=== PATIENT | female | born 1990 | race Hispanic/Latino ===

== ENCOUNTER 2018-10-06 13:08 | Outpatient (RCR) | payer SELFPAY | END 2018-10-06 23:59 | disposition home or self-care (01) | LOC: DC 13:08 | PROVIDERS: Visit Provider Obstetrics & Gynecology | DX: O24.410 Gestational diabetes mellitus in pregnancy, diet controlled (principal) | CPT/HCPCS: G0108 ==

== ENCOUNTER 2018-12-09 17:35 | Outpatient (CLI) | payer SELFPAY ==
[2018-12-09 18:31] LABS: Bedside Glucose 110 mg/dL (70-110)
[2018-12-09 19:32] VITALS: BMI 37.3
--- NOTE | 2018-12-15 09:20 | OB.TRI.NOTE ---
- Problem List (1) Non-reactive NST (non-stress test) Status: Acute (2) Gestational diabetes Status: Acute History of Present Illness Date of Service: 12/09/18 Was patient seen by the physician?: No Reason For Visit: Extended monitoring Date of Service: 12/09/18 Final BRADEN: 12/16/18 Gestational age: 39 Weeks and 6 Days History of Present Illness: Patient presented to the office for a routine appointment and had a nonreactive NST with an isolated deceleration for GDM. She was sent to L&D for a BG check and extended monitoring Allergies No Known Allergies Allergy (Verified 12/09/18 19:11) Laboratory Studies: Laboratory Tests 12/09/18 Range/Units 18:27 POC Glucose 110 (70-110) mg/dL NST - FHR Rate Baby A Baseline: 130 Variability:: Moderate Accelerations:: 15 x 15 Decelerations:: None NST Reactive:: Yes FHR Category:: Category I Uterine Activity:: Irritable Impression/Plan Prolonged monitoring reactive and category 1 D/c home to follow up in the office and schedule IOL for GDM
== END 2018-12-09 19:35 | disposition home or self-care (01) ==
LOC: WPOUT 17:40 → WP 17:40
PROVIDERS: Referring Provider Obstetrics & Gynecology; Visit Provider Obstetrics & Gynecology
DX: O24.419 Gestational diabetes mellitus in pregnancy, unspecified control (principal); Z3A.39 39 weeks gestation of pregnancy
CPT/HCPCS: 59050; 82962; 94760; 99218; G0378

== ENCOUNTER 2018-12-16 07:40 | Inpatient (IN) | payer SELFPAY ==
[2018-12-16] MEDS: Lactated Ringers 1,000 ML 50 ML IV ×3 (08:10→13:15)
[2018-12-16 08:33] VITALS: BMI 35.5
[2018-12-16 08:40] LABS: Absolute Lymphocyte Count 1.78 X10^3/ul (0.83-4.51); Absolute Neutrophil Count 4.5 X10^3/uL (2.0-7.7); Basophil# 0.01 X10^3/uL; Basophil% 0.1 % (0-1); Eosinophil# 0.11 X10^3/uL; Eosinophils% 1.6 % (0-5); Hemoglobin 13.3 g/dl (12.0-15.0); Lymphocyte # 1.78 X10^3/ul (4.0); Lymphocyte % 25.4 % (19-41); Mean Corp Hgb Conc 34.1 g/gl (32-36); Mean Corpuscular Hgb 29.6 pg (27.0-32.0); Mean Corpuscular Volume 86.7 fL (81-99); Mean Platelet Vol. 12.3 fl (6.2-12.0); Monocyte# 0.53 X10^3/uL; Monocyte% 7.6 % (0-10); Neutrophil # 4.53 X10^3/uL (2.7-7.7); Neutrophil % 64.7 % (47-70); Platelet Count 188 K/mm3 (150-450); RBC Distribution Width CV 13.2 % (11.6-14.6); RBC Distribution Width SD 40.7 fl (35.1-43.9)
[2018-12-16 08:44] LABS: POSITIVE COUNT NO; POSITIVE DIFFERENTIAL NO; POSITIVE MORPHOLOGY NO
[2018-12-16] MEDS: Oxytocin 30 units/NS 500 ml 30 UNITS/500 ML IV.SOLN IV (09:10)
[2018-12-16 10:01] LABS: Bedside Glucose 96 mg/dL (70-110)
[2018-12-16 10:35] LABS: Bedside Glucose 71 mg/dL (70-110)
--- NOTE | 2018-12-16 12:27 | HP.PCM_ITS ---
- Problem List (1) History of section Status: Acute (2) Hx successful (vaginal after ), currently Status: Acute (3) Gestational diabetes Status: Acute History Date of Admission: 12/16/18 Final BRADEN: 12/17/18 Gestational age: 39 Weeks and 6 Days History of this : This is a 28 year-old, G3, P2002, at 39 weeks gestational age who presents for scheduled IOL for GDM. Allergies No Known Allergies Allergy (Verified 12/16/18 08:34) Home Medications: Home Medications Vits [Prenatabs FA] 1 tab PO DAILY 12/09/18 Smoking Status: Never smoker Alcohol: None Number of Fetus(es): 1 Heart Tracin/mod sharon/+accels/no decels History Past Pregnancies: Past Pregnancies Delivery Date Name GA/Weeks Outcome Route Weight Infant Gender Labor Length Anesthesia Delivery Location Provider FOB 40w4d C/S 6lb 9oz [place] 39w0d 7lb [place] Labs: GBS neg 36 wk US: AGA and normal fluid Hgb 13.3, plt 236UDS neg Syphilis NR RI HepB neg HIV NR Rh positive, antibody screen neg GC/CT neg Expected Delivery Method: Review of Systems Unable to obtain accurate/complete ROS d/t: 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 and pt is Cambodian speaking Physical Exam General: Alert, No apparent distress HEENT: Atraumatic Lungs: Normal air movement Abdomen: Gravid Extremities:: No edema Neurological: Neuro grossly intact LINEN ATTENDANT: Normal external genitalia Estimated gestational size: Appropriate for gestational size Presentation: Cephalic Cervix Dilation (cm): 4 Station: -2 Effacement (%): 60 Assessment/Plan All Active Problems Non-reactive NST (non-stress test) (Acute) Gestational diabetes (Acute) History of section (Acute) Hx successful (vaginal after ), currently (Acute) This is a 28 year-old, G3, P2002, at 39 weeks gestational age who presents for scheduled IOL for GDM. H/o prior C/S followed by successful . In the office, risks and benefits of scheduled C/S vs TOLAC were discussed and patient desires TOLAC. - Routine intrapartum care - GBS neg - Epidural prn - Vicente out and pt now 4 cm. AROM performed for clear fluid. IUPC and FSE placed - Continue titration of pit - Anticipate successful - Management per sales service professional provider Dr. Benoit
[2018-12-16 14:26] LABS: Bedside Glucose 87 mg/dL (70-110)
[2018-12-16] MEDS: Oxytocin 30 units/NS 500 ml 30 UNITS/500 ML IV.SOLN 334 UNITS IV (16:03)
--- NOTE | 2018-12-16 16:16 | PCM.OPRPT ---
Report of Operation Date of Procedure: 12/16/18 Vaginal Delivery Maternal Presentation: Medically Indicated Induction Method of Induction: Pitocin, Vicente Bulb, Amniotomy Medical Reason for Induction: - - gestational diabetes class A1 Amniotic Membrane Rupture Type: Artificial Amniotic Fluid Description: Clear Final BRADEN: 12/17/18 Gestational age: 39 Weeks and 6 Days Date of Procedure: 12/16/18 Pre-Operative Diagnosis: labor Post-Operative Diagnosis: same Surgery/ Procedure Performed: Spontaneous Vaginal Delivery Type of Anesthesia: None Description of Procedure: A vigorous female was delivered DELMA over intact perineum. A loose nuchal cord ?1 was easily reduced. The remainder the infant was delivered with maternal pushing and gentle traction only in less than 15 seconds. The Pitocin infusion was initiated for active management of the third stage. The cord was clamped and cut after 1 minute. The was attended to by the waiting nursing staff. The placenta was delivered spontaneously and intact. The cervix and vagina were intact. Sponge and needle counts were correct. A vaginal sweep was completed by me. Presentation: DELMA Placental Delivery Description: Spontaneous Placenta Disposition: [facility] Cord Vessel Description: 3 Vessels Nuchal Cord Compression: Without compression Cord Entanglement: Around neck x 1, loose Estimated Blood Loss: 300 Infant A gender: Female Episiotomy Description: None Laceration: None Medications given after delivery: IV Pitocin Complications: None
[2018-12-16] MEDS: Oxytocin 30 units/NS 500 ml 30 UNITS/500 ML IV.SOLN 167 UNITS IV (16:33)
--- NOTE | 2018-12-16 17:20 | NURSING ---
at present pt's BGT 165. Pt has had a sprite to drink and renny doones since delivery at 1601
[2018-12-16 17:26] LABS: Bedside Glucose 88 mg/dL (70-110)
[2018-12-16 17:41] LABS: Bedside Glucose 165 mg/dL (70-110)
[2018-12-16] MEDS: Acetaminophen 500 MG Tablet 1000 MG PO (18:28)
[2018-12-16 20:00] VITALS: BP 106/54; PULSE 83; RESP 18; TEMP 36.3
[2018-12-17] VITALS: BP 98/48; PULSE 83; RESP 16; TEMP 37.3
[2018-12-17 03:40] VITALS: BP 104/62; PULSE 79; RESP 18; TEMP 36.6
[2018-12-17] MEDS: Acetaminophen 500 MG Tablet 1000 MG PO (08:34)
[2018-12-17 10:16] VITALS: BP 112/61; PULSE 64; RESP 18; TEMP 36.4
[2018-12-17 12:30] VITALS: BP 93/55; PULSE 57; RESP 16; TEMP 36.2
--- NOTE | 2018-12-17 13:06 | DCINST_ITS ---
Discharge Diet: No Restrictions Discharge Activity: Return to Normal Activity, May not drive while taking narcotic pain medications., May Shower May resume sexual activity in: 4-6 weeks Additional Activity Instructions:: Nothing in the vagina for 4-6 weeks. You may return to work/school in 6 weeks. Call your doctor if your incision/area has: Continuous Slow Oozing, Sudden Increased Bleeding, Increased Pain/ Swelling, Increased Redness, Foul Smelling Discharge Additional Instructions: If you experience any of the following, contact your healthcare provider. * Bleeding that soaks a pad every hour for 2 hours * Fever 100.4 or higher * Unrelieved incision or abdominal pain * Swelling, redness, discharge or bleeding from your incision or episiotomy site * Your incision begins to separate * Problems urinating (including inability to urinate or burning while urinating). * Visual changes * Severe headache * Flu-like symptoms * Pain or redness in one of both of your breasts * Pain, warmth, tenderness or swelling in your legs, especially the calf area * Frequent nausea and vomiting * Symptoms of depression or anxiety If you experience any of the following, call 911 or go to the nearest Emergency Room. * Chest pain * Problems breathing * Seizure activity * Partial or complete paralysis of a body part, slurred speech, weakness or drooping of the face, or a sudden inability to walk or hold your balance Allergies/Adverse Reactions: Allergies No Known Allergies Allergy (Verified 12/16/18 08:34) Medications to take at Discharge Vits [Prenatabs FA ] 1 tab PO DAILY 12/09/18 Ibuprofen [Motrin] 600 mg PO Q6H PRN #60 tab 12/17/18 The following prescriptions were given: Ibuprofen [Motrin] 600 mg PO Q6H PRN #60 tab PRN Reason: Pain Prescription Printed Please Follow Up With: Charissa Benoit MD - [phone] When: Call to make an appointment with your providers office in 1-2 in 6 weeks. Primary Care Physician: Care Physician,No Primary [Primary Care Provider] - Test Results: Test results from this visit will be discussed in further detail at your follow- up appointment, if applicable.
--- NOTE | 2018-12-17 13:07 | PCM.PN.OB ---
Patient Problems: Active and Suspected Problems History of section (Acute) Hx successful (vaginal after ), currently (Acute) Subjective: Pain well controlled. Average lochia. Has been up to urinate. Tolerating regular diet. - Physical Exam General: Alert, Cooperative, No apparent distress Vital Signs Temp Pulse Resp BP 97.6 F L 64 18 112/61 12/17/18 10:16 12/17/18 10:16 12/17/18 10:16 12/17/18 10:16 Oxygen Delivery Method Room Air Weight: 85.275 kg Body Mass Index (BMI) 35.5 Intake and Output for Last 24 Hours 12/15/18 12/16/18 12/17/18 23:59 23:59 23:59 Intake Total 2041 / 2041 Output Total 1924 / 1924 Balance 117 / 117 POC Glucose 12/16/18 12/16/18 12/16/18 17:26 15:18 14:10 POC Glucose 165 H 88 87 Medical Necessity - Tobacco Use Smoking Status: Never smoker Assessment/Plan All Active Problems Non-reactive NST (non-stress test) (Acute) Gestational diabetes (Acute) History of section (Acute) Hx successful (vaginal after ), currently (Acute) day #1 status post vaginal delivery. Patient desires discharge home today. Routine discharge instructions and prescriptions were given. Follow-up in the office in 1-2 in 6 weeks or as needed.
[2018-12-17 18:00] VITALS: BP 109/71; PULSE 80; RESP 16; TEMP 36.2
--- NOTE | 2018-12-17 19:27 | NURSING ---
Discharge teaching completed using nanotechnology engineering technologist ipad. Part of teaching done with Duran [id number], and then Sarkis [id number]. Discussed education, d/c instructions, and certificate info as well as procedures.
--- NOTE | 2018-12-17 20:27 | NURSING ---
2024 Family of pt leaving for the night at this time. Explained to pt how to reach RN with phone. Reassured pt and family communication ipad will be used to help with communication. Pt friend would like senior game designer to call in AM about POC, to know when she should arrive tomorrow.
[2018-12-17 21:00] VITALS: BP 113/73; PULSE 82; RESP 20; TEMP 36.2
[2018-12-18 02:00] VITALS: BP 110/69; PULSE 63; RESP 16; TEMP 36
[2018-12-18 09:15] VITALS: BP 111/65; PULSE 68; RESP 16; TEMP 36.3
--- NOTE | 2018-12-18 09:41 | PCM.PN.OB ---
Patient Problems: Active and Suspected Problems History of section (Acute) Hx successful (vaginal after ), currently (Acute) Subjective: Pain well controlled, average lochia. Desires discharge. - Physical Exam General: Alert, Cooperative, No apparent distress Vital Signs Temp Pulse Resp BP 97.4 F L 68 16 111/65 12/18/18 09:15 12/18/18 09:15 12/18/18 09:15 12/18/18 09:15 Oxygen Delivery Method Room Air Weight: 85.275 kg Body Mass Index (BMI) 35.5 Intake and Output for Last 24 Hours 12/16/18 12/17/18 12/18/18 23:59 23:59 23:59 Intake Total 2041 / 2041 Output Total 1924 / 1924 Balance 117 / 117 Medical Necessity - Tobacco Use Smoking Status: Never smoker Assessment/Plan All Active Problems Non-reactive NST (non-stress test) (Acute) Gestational diabetes (Acute) History of section (Acute) Hx successful (vaginal after ), currently (Acute) day #2 status post vaginal delivery, history of previous section. Infant is breast-feeding doing well. Discharge home with routine follow-up and instructions.
== END 2018-12-18 10:25 | disposition home or self-care (01) | DRG 807 ==
PROVIDERS: Admitting Provider Obstetrics & Gynecology; Referring Provider Obstetrics & Gynecology; Visit Provider Obstetrics & Gynecology
DX: O24.420 Gestational diabetes mellitus in childbirth, diet controlled (principal); Z37.0 Single live birth; O69.81X0 Labor and delivery complicated by cord around neck, without compression, not applicable or unspecified; Z3A.39 39 weeks gestation of pregnancy
CPT/HCPCS: 59025; 59050; 82962; 85025; 86850; 86900; 99218; J7120; G0378

== ENCOUNTER 2021-06-19 14:13 | Outpatient (CLI) | payer SELFPAY ==
[2021-06-19 14:33] LABS: Absolute Lymphocyte Count 1.95 X10^3/uL (0.83-4.51); Absolute Neutrophil Count 5.7 X10^3/uL (2.0-7.7); Basophil# 0.02 X10^3/uL; Basophil% 0.2 % (0-1); Eosinophil# 0.17 X10^3/uL; Hematocrit 36.3 % (37-47); Hemoglobin 12.7 g/dL (12.0-15.0); Lymphocyte # 1.95 X10^3/ul (0.83-4.51); Lymphocyte % 23.1 % (19-41); Mean Corpuscular Hgb 29.9 pg (27.0-32.0); Mean Corpuscular Volume 85.4 fL (81-99); Mean Platelet Vol. 10.6 fl (6.2-12.0); Monocyte# 0.59 X10^3/uL; NRBC Flagged by Analyzer 0 % (0-5); Neutrophil # 5.67 X10^3/uL (2.7-7.7); Neutrophil % 67.3 % (47-70); Platelet Count 234 K/mm3 (150-450); RBC Distribution Width CV 12.6 % (11.6-14.6); RBC Distribution Width SD 38.8 fl (35.1-43.9); Red Blood Count 4.25 M/mm3 (4.2-5.4); White Blood Count 8.4 K/mm3 (4.4-11.0)
[2021-06-19 15:52] LABS: HIV - WCH Non-Reactive (Nonreactive); Hepatitis B Surface Antigen Non-Reactive (Nonreactive); Hepatitis C Antibody Non-Reactive (Nonreactive); Rubella IgG Reactive (Nonreactive); Syphilis Antibodies Non-reactive
[2021-06-19 16:08] LABS: Amphetamine Urine VISTA NEGATIVE (<1000 ng/mL); Barbiturate Urine VISTA NEGATIVE (< 200 ng/mL); Benzodiazepine Urine VISTA NEGATIVE (< 200 ng/mL); Cocaine Urine VISTA NEGATIVE (< 300 ng/mL); Ecstacy Urine VISTA NEGATIVE (< 500 ng/mL); Methadone Urine VISTA NEGATIVE (< 300 ng/mL); PCP Urine VISTA NEGATIVE (< 25 ng/mL); THC Urine VISTA NEGATIVE (< 50 ng/mL); Vista UDS pH Range 6
[2021-06-23 15:07] LABS: Chlamydia By Nucleic Acid AMP Negative (Negative)
[2021-06-23 16:08] LABS: Gonococcus By Nucleic Acid AMP Negative (Negative)
[2021-06-26 00:07] LABS: HPV Genotype 16, Aptima Negative (Negative)
[2021-06-26 08:36] LABS: HPV APTIMA, High Risk Positive (Negative); HPV Genotype 18,45 Aptima Negative (Negative)
== END 2021-06-19 23:59 | disposition short-term general hospital (02) ==
PROVIDERS: Referring Provider Obstetrics & Gynecology; Visit Provider Obstetrics & Gynecology
DX: O09.90 Supervision of high risk pregnancy, unspecified, unspecified trimester (principal); Z3A.00 Weeks of gestation of pregnancy not specified; Z12.4 Encounter for screening for malignant neoplasm of cervix
CPT/HCPCS: 36415; 80307; 85025; 86703; 86762; 86780; 86803; 86850; 86900; 86901; 87086; 87088; 87340; 87491; 87591; 87624; 88175; G0145

== ENCOUNTER 2021-07-08 13:00 | Outpatient (CLI) | payer SELFPAY ==
--- NOTE | 2021-07-08 13:14 | US_ITS ---
STUDY: SECOND AND THIRD TRIMESTER OBSTETRICAL ULTRASOUND REASON FOR EXAM: Female, 31 years old anatomy -- PT ONLY 16 WEEKS - COULD NOT DO ANATOMY scan. LMP: 02/24/2021. TECHNIQUE: Transabdominal TECHNICAL QUALITY: Adequate. PRIOR ULTRASOUND: None. FINDINGS: There is a single intrauterine fetus. The fetus is in a breech presentation. There is demonstrated cardiac activity with a heart rate of 132 bpm. There is a normal amniotic fluid volume. The largest amniotic fluid pocket measures 4.3 cm x 4 cm. The amniotic fluid index (FELICIA) is within normal limits. The placenta is posterior in location and is not low lying. There are Grade 0 placental changes. The cervix measures 4.3 cm in length. The adnexal regions are not visualized. BIOMETRY: BPD: 3.4 cm: 16 weeks, 3 days HC: 13.01 cm: 16 weeks, 4 days AC: 10.93 cm: 60 weeks, 5 days FL: 1.87 cm: 15 weeks, 3 days CI: 76% FL/BPD: 55% FL/HC: FL/AC: 17% HC/AC: 1.19 age by current US: 16 weeks, 2 days. BRADEN by current US: 12/21/2021. Estimated weight: 150 grams, +/- 23 grams Age by LMP: 19 weeks, 1 days. BRADEN by LMP: 12/01/2021. ANATOMY: Gender: Indeterminant Cranium: Normal choroid plexus. Normal cerebellum. Chest: Normal 4-chamber heart. Abdomen/Pelvis: Normal diaphragm. Normal stomach. Spine: The cervical spine is non-visualized. The thoracic spine is non-visualized. The lumbar spine is non-visualized. Extremities: The upper extremities are not visualized. The lower extremities are non-visualized. US/OB Limited With Biometrics IMPRESSION: Single live intrauterine gestation with mean gestational age of 16 weeks and 2 days. Limited evaluation of the anatomy. Follow-up is recommended. Electronically Signed: Cruz Watson MD at 15:27 EST ,
== END 2021-07-08 23:59 | disposition short-term general hospital (02) ==
PROVIDERS: Visit Provider Obstetrics & Gynecology
DX: Z34.92 Encounter for supervision of normal pregnancy, unspecified, second trimester (principal); Z3A.16 16 weeks gestation of pregnancy
CPT/HCPCS: 76816

== ENCOUNTER 2021-08-04 12:56 | Outpatient (CLI) | payer SELFPAY ==
--- NOTE | 2021-08-04 13:02 | US_ITS ---
STUDY: SECOND AND THIRD TRIMESTER OBSTETRICAL ULTRASOUND REASON FOR EXAM: Female, 31 years old ANATOMY SCAN LMP: 02/24/2021 TECHNIQUE: Transabdominal and Transvaginal TECHNICAL QUALITY: Adequate. PRIOR ULTRASOUND: Comparison is made with prior study dated 07/08/2021. FINDINGS: There is a single intrauterine fetus. The fetus is in a cephalic presentation. There is demonstrated cardiac activity with a heart rate of 124 bpm. There is a normal amniotic fluid volume. The largest amniotic fluid pocket measures 5.8 cm x 4.1 cm. The amniotic fluid index (FELICIA) is within normal limits. The placenta is posterior in location and is not low lying. There are Grade 0 placental changes. The cervix measures 3.2 cm in length. The bilateral adnexal regions are normal. BIOMETRY: BPD: 4.98 cm: 21 weeks, 3 days HC: 18.03 cm: 20 weeks, 3 days AC: 16.16 cm: 21 weeks, 1 days FL: 3.35 cm: 20 weeks, 3 days CI: 80% FL/BPD: 67% FL/HC: FL/AC: 21% HC/AC: 1.12 age by current US: 20 weeks, 3 days. BRADEN by current US: 12/19/2021. Estimated weight: 389 grams, +/- 58 grams, 86 %. age by prior US: 20 weeks, 1 days. BRADEN by prior US: 12/21/2021. Age by LMP: 20 weeks, 1 days. BRADEN by LMP: 12/21/2021. ANATOMY: Gender: Male Cranium: Normal lateral ventricles. Normal choroid plexus. Normal cerebellum. Normal cisterna magna. Normal face, nose and lips. Chest: Normal 4-chamber heart. Abdomen/Pelvis: Normal diaphragm. Normal stomach. Normal abdominal wall. Normal cord insertion. Normal 3 vessel cord. Normal kidneys. Normal bladder. Spine: Normal cervical spine. Normal thoracic spine. Normal lumbar spine. Normal sacrum. Extremities: Normal bilateral upper extremities. Normal bilateral lower extremities. IMPRESSION: Single live intrauterine gestation with mean gestational age of 20 weeks and 1 day. Electronically Signed: Cruz Watson MD at 15:54 EST , STUDY: FIRST TRIMESTER OBSTETRICAL ULTRASOUND REASON FOR EXAM: Female, 31 years old. Cervical length. TECHNIQUE: Transvaginal TECHNICAL QUALITY: Adequate. PRIOR ULTRASOUND: None. FINDINGS: Cervical length measures 3.2 cm. US/OB Anatomy Scan IMPRESSION: Cervical length measures 3.2 cm. Electronically Signed: Cruz Watson MD at 15:55 EST ,
--- NOTE | 2021-08-04 13:02 | US_ITS ---
STUDY: SECOND AND THIRD TRIMESTER OBSTETRICAL ULTRASOUND REASON FOR EXAM: Female, 31 years old ANATOMY SCAN LMP: 02/24/2021 TECHNIQUE: Transabdominal and Transvaginal TECHNICAL QUALITY: Adequate. PRIOR ULTRASOUND: Comparison is made with prior study dated 07/08/2021. FINDINGS: There is a single intrauterine fetus. The fetus is in a cephalic presentation. There is demonstrated cardiac activity with a heart rate of 124 bpm. There is a normal amniotic fluid volume. The largest amniotic fluid pocket measures 5.8 cm x 4.1 cm. The amniotic fluid index (FELICIA) is within normal limits. The placenta is posterior in location and is not low lying. There are Grade 0 placental changes. The cervix measures 3.2 cm in length. The bilateral adnexal regions are normal. BIOMETRY: BPD: 4.98 cm: 21 weeks, 3 days HC: 18.03 cm: 20 weeks, 3 days AC: 16.16 cm: 21 weeks, 1 days FL: 3.35 cm: 20 weeks, 3 days CI: 80% FL/BPD: 67% FL/HC: FL/AC: 21% HC/AC: 1.12 age by current US: 20 weeks, 3 days. BRADEN by current US: 12/19/2021. Estimated weight: 389 grams, +/- 58 grams, 86 %. age by prior US: 20 weeks, 1 days. BRADEN by prior US: 12/21/2021. Age by LMP: 20 weeks, 1 days. BRADEN by LMP: 12/21/2021. ANATOMY: Gender: Male Cranium: Normal lateral ventricles. Normal choroid plexus. Normal cerebellum. Normal cisterna magna. Normal face, nose and lips. Chest: Normal 4-chamber heart. Abdomen/Pelvis: Normal diaphragm. Normal stomach. Normal abdominal wall. Normal cord insertion. Normal 3 vessel cord. Normal kidneys. Normal bladder. Spine: Normal cervical spine. Normal thoracic spine. Normal lumbar spine. Normal sacrum. Extremities: Normal bilateral upper extremities. Normal bilateral lower extremities. IMPRESSION: Single live intrauterine gestation with mean gestational age of 20 weeks and 1 day. Electronically Signed: Cruz Watson MD at 15:54 EST , STUDY: FIRST TRIMESTER OBSTETRICAL ULTRASOUND REASON FOR EXAM: Female, 31 years old. Cervical length. TECHNIQUE: Transvaginal TECHNICAL QUALITY: Adequate. PRIOR ULTRASOUND: None. FINDINGS: Cervical length measures 3.2 cm. US/Transvaginal w/Preg US IMPRESSION: Cervical length measures 3.2 cm. Electronically Signed: Cruz Watson MD at 15:55 EST ,
== END 2021-08-04 23:59 | disposition home or self-care (01) ==
PROVIDERS: Visit Provider Obstetrics & Gynecology
DX: O09.90 Supervision of high risk pregnancy, unspecified, unspecified trimester (principal); Z3A.16 16 weeks gestation of pregnancy
CPT/HCPCS: 76805; 76817

== ENCOUNTER 2021-08-22 12:58 | Outpatient (CLI) | payer SELFPAY ==
[2021-08-22 14:07] LABS: Glucose Challenge Gest 1H 50g 185 mg/dL (70-140)
== END 2021-08-22 23:59 | disposition home or self-care (01) ==
PROVIDERS: Visit Provider Obstetrics & Gynecology
DX: O09.299 Supervision of pregnancy with other poor reproductive or obstetric history, unspecified trimester (principal); Z86.32 Personal history of gestational diabetes
CPT/HCPCS: 36415; 82950

== ENCOUNTER 2021-09-18 13:46 | Outpatient (CLI) | payer SELFPAY ==
[2021-09-18 14:20] LABS: Absolute Lymphocyte Count 1.91 X10^3/uL (0.83-4.51); Absolute Neutrophil Count 5.9 X10^3/uL (2.0-7.7); Basophil# 0.02 X10^3/uL; Basophil% 0.2 % (0-1); Eosinophil# 0.15 X10^3/uL; Eosinophils% 1.8 % (0-5); Hematocrit 38.2 % (37-47); Hemoglobin 12.9 g/dL (12.0-15.0); Lymphocyte # 1.91 X10^3/ul (0.83-4.51); Lymphocyte % 22.3 % (19-41); Mean Corp Hgb Conc 33.8 g/dL (32-36); Mean Corpuscular Hgb 30.1 pg (27.0-32.0); Mean Corpuscular Volume 89.3 fL (81-99); Mean Platelet Vol. 11.4 fl (6.2-12.0); Monocyte# 0.54 X10^3/uL; Monocyte% 6.3 % (0-10); NRBC Flagged by Analyzer 0 % (0-5); Neutrophil # 5.89 X10^3/uL (2.7-7.7); Neutrophil % 68.8 % (47-70); Platelet Count 216 K/mm3 (150-450); RBC Distribution Width CV 12.4 % (11.6-14.6); RBC Distribution Width SD 40.6 fl (35.1-43.9); Red Blood Count 4.28 M/mm3 (4.2-5.4); White Blood Count 8.6 K/mm3 (4.4-11.0)
== END 2021-09-18 23:59 | disposition home or self-care (01) ==
LOC: LAB 13:47
PROVIDERS: Referring Provider Nurse Practitioner Women's Health; Visit Provider Nurse Practitioner Women's Health
DX: Z34.90 Encounter for supervision of normal pregnancy, unspecified, unspecified trimester (principal); Z3A.25 25 weeks gestation of pregnancy
CPT/HCPCS: 36415; 85025

== ENCOUNTER → 2021-11-05 | Outpatient (CLI) | payer SELFPAY ==
--- NOTE | 2021-11-05 12:06 | US_ITS ---
STUDY: SECOND AND THIRD TRIMESTER OBSTETRICAL ULTRASOUND REASON FOR EXAM: Female, 31 years old growth LMP: 02/24/2021. TECHNIQUE: Transabdominal TECHNICAL QUALITY: Adequate. PRIOR ULTRASOUND: None. FINDINGS: There is a single intrauterine fetus. The fetus is in a cephalic presentation. There is demonstrated cardiac activity with a heart rate of 147 bpm. There is a normal amniotic fluid volume. The largest amniotic fluid pocket measures 4.9 cm. The amniotic fluid index (FELICIA) is 14.7 cm. The placenta is fundal in location. There are Grade 1 placental changes. The cervix measures 3.8 cm in length. The adnexal regions are not visualized. BIOMETRY: BPD: 8.63 cm: 34 weeks, 5 days HC: 31.36 cm: 35 weeks, 1 days AC: 33.01 cm: 36 weeks, 6 days FL: 6.53 cm: 33 weeks, 4 days CI: 81% FL/BPD: 76% FL/HC: FL/AC: 20% HC/AC: 0.95 age by current US: 34 weeks, 5 days. BRADEN by current US: 12/12/2021. Estimated weight: 2773 grams, +/- 416 grams, 39 %. age by prior US: 33 weeks, 5 days. BRADEN by prior US: 12/20/2019. Age by LMP: 36 weeks, 2 days. BRADEN by LMP: 12/01/2021. US/OB Limited With Biometrics IMPRESSION: Single live intrauterine gestation with a gestational age of 36 weeks and 2 days by LMP Electronically Signed: Cruz Watson MD at 13:16 EDT ,
== END | disposition home or self-care (01) ==
PROVIDERS: Visit Provider Nurse Practitioner Women's Health
DX: O09.90 Supervision of high risk pregnancy, unspecified, unspecified trimester (principal)
CPT/HCPCS: 76816; 87081

== ENCOUNTER 2021-11-13 15:40 | Outpatient (CLI) | payer SELFPAY ==
[2021-11-13 15:53] VITALS: BMI 34.3
[2021-11-13 15:55] VITALS: BP 123/62; PULSE 78; TEMP 36.2; O2SAT 100
--- NOTE | 2021-11-13 16:06 | US_ITS ---
STUDY: OBSTETRICAL ULTRASOUND - BIOPHYSICAL PROFILE REASON FOR EXAM: Female, 31 years old. non reactive NST PRIOR ULTRASOUND: 6.06.28 TECHNIQUE: Transabdominal TECHNICAL QUALITY: Adequate. FINDINGS: There is a single intrauterine fetus. The fetus is in a cephalic presentation. There is demonstrated cardiac activity with a heart rate of 153 bpm. There is a normal amniotic fluid volume. The largest amniotic fluid pocket measures 2.9 cm. The amniotic fluid index (FELICIA) is 11.2 cm. The placenta is fundal in location. There are Grade 1 placental changes. Age by LMP: 37 weeks, 3 days. BRADEN by LMP: 6... . BIOPHYSICAL PROFILE: Breathing Movements (FBM): 2 Gross Body Movements (GBM): 2 Tone (FT): 2 Amniotic Fluid Volume (AFV): 2 TOTAL SCORE: 8 / 8 US/Biophysical Prof W/O Non Stres IMPRESSION: Normal biophysical profile of 8/8. There is a single live intrauterine with a heart rate of 153 bpm. Electronically Signed: George Villa MD at 17:53 EDT Reading Location ID and State: [facility] / [place] , Service support ,
--- NOTE | 2021-11-13 17:05 | OB.TRI.HP_ITS ---
HPI - General HPI Narrative DORON DICK, is a 31 F who presents to L&D from office due to non-reactive nst, for extended monitoring and BPP Maternal Data Information BRADEN Calculator Estimated Delivery Date Method Current WG Current Estimate 12/01/21 LMP (Certain) 37w 3d Other Estimates 12/10/21 Ultrasound #1 36w 1d PFSH PFSH Medical History Gestational diabetes Non-reactive NST (non-stress test) Home Medications promethazine 12.5 mg tablet 12.5 mg PO Q6H PRN #90 tab 06/12/21 [Rx Last Taken Unknown] blood-glucose meter #1 ea 08/25/21 [Rx Last Taken Unknown] lancing device with lancets kit #120 ea 08/25/21 [Rx Last Taken Unknown] metformin 500 mg tablet 1,000 mg PO BIDWMEAL tab 10/22/21 [History Last Taken Unknown] Allergy/AdvReac Type Severity Reaction Status Date / Time No Known Allergies Allergy Verified 11/13/21 14:18 Family History Mother Diabetes Father Diabetes Social History household members: family housing: house number of children: 3 current occupational status: employed current occupation: [employer] pets and animals: No Smoking Status: Never smoker second hand exposure: No alcohol intake: never substance use type: does not use caffeine: Yes seatbelt use: always do you feel safe at home: Yes additional social history: - Rhett (Tele) History 4 Elective abortions Hx Para 3 Spontaneous abortions Hx # Term Pregnancies Ectopic pregnancies Hx # Pregnancies Multiple births # of living children 3 Past Pregnancies Del. Date Name GA/Weeks Outcome Route Bth Weight Infant Gen Labor Lgth Anesthesia Del Locatn Provider FOB Unknown 09/10/2005- Flavio 40 live - full term 3kg Male general [facility] Unknown 12/20/2010- Noreen 40 live - full term 3kg Female 8 hours none [facility] Unknown 12/16/2018- Aniyah 39 live - full term 4kgs Female 10 hours none [facility] Delivery Date: Baby did not descend and was very high per patient Carline Guerra Delivery Date: No notes to display Delivery Date: IoL GDM Carline Guerra Visit Details Expected Delivery Route/Plan patient counseled regarding risks/benefits of trial of labor versus repeat . ACOG/uptodate education given to patient. [] % likelihood of success per calculator TOLAC consent form signed: [] Labor Preferences- CB/BF classes: [] labor support person: Lisa labor intervention preferences: [] pain management options preferred: epidural cut cord/dad catch: [] : yes PP control planned: nexplanon 6 wk pp discussed possible routes of delivery and associated risks: [] special requests: [] Plans Covid status: non immune counseled regarding risk of covid in vs vaccination and declined vaccination Flu vaccine: decline Tdap vaccine: [] Rhogam: [] LARC form signed: [] Problem list reviewed and updated with the most current plan of care details and appropriate orders placed. Relevant counseling for the gestational age provided. Continue routine care and follow up unless otherwise noted in visit notes/problem list details OB Flowsheet Initial Weight: Not Recorded Date -?-?--?-?-?-?-?-?-?-?-?-?- EGA Weight BP Urine Prot -?-?-?-?-?-?-?-?-?-?-?-?- Glucose FHR FuHt Pres Dilation -?-?-?-?-?-?-?-?-?-?-?-?- Effaced St Visit Note 06/19/21 -?-?-?-?-?-?-?-?-?-?-?-?- 16w 3d 174 lb 112/80 -?-?-?-?-?-?-?-?-?-?-?-?- 140 -?-?-?-?-?-?-?-?-?-?-?-?- SM- CRL cons wit h LMP. SM- CRL and BPD 15w1d cons w ith LMP. SM- CRL and BPD 15w1d cons w ith LMP. not the best images. 07/18/21 -?-?-?-?-?-?-?-?-?-?-?-?- 20w 4d 173 lb 2 oz 122/80 Nega tive -?-?-?-?-?-?-?-?-?-?-?-?- Negative 137 -?-?-?-?-?-?-?-?-?-?-?-?- JV- no complaint s today. needs glucola. cartridge maker helped explain details. Ultrasound with [facility] ordered for 08/04 at 1:00. 08/22/21 -?-?-?-?-?-?-?-?-?-?-?-?- 25w 4d 177 lb 8 oz 117/77 Nega tive -?-?-?-?-?-?-?-?-?-?-?-?- 500 g/dL 160 -?-?-?-?-?-?-?-?-?-?-?-?- JV- no lof, vagi nal bleeding, or dec fm. cartridge maker service used. pt needs glucola today 09/18/21 -?-?-?-?-?-?-?-?-?-?-?-?- 29w 3d 176 lb 2 oz 118/70 Nega tive -?-?-?-?-?-?-?-?-?-?-?-?- Negative 143 28 -?-?-?-?-?-?-?-?-?-?-?-?- MH-NO Vb, LOF. G ood FM. [employer] Underwriter used. Glucose readings >50% high,will discuss with SM referral Dr Ramsey. 10/02/21 -?-?-?-?-?-?-?-?-?-?-?-?- 31w 3d 176 lb 2 oz 108/66 Nega tive -?-?-?-?-?-?-?-?-?-?-?-?- Negative 146 32 -?-?-?-?-?-?-?-?-?-?-?-?- MH-[employer] Underwriter caitie Gonzalez with her. No Vb, LOF. Good FM. Started metformin 09/28. Glucose readings still elevated. Is to discuss with Dr Ramsey tomorrow. Start NSTs twice a week next week. 10/06/21 -?-?-?-?-?-?-?-?-?-?-?-?- 32w 0d 173 lb 8 oz -?-?-?-?-?-?-?-?-?-?-?-?- 140 -?-?-?-?-?-?-?-?-?-?-?-?- NST only reac tive 10/08/21 -?-?-?-?-?-?-?-?-?--?-?-?- 32w 2d 175 lb 6 oz 110/70 Nega tive -?-?-?-?-?-?-?-?-?-?-?-?- Negative 130 -?-?-?-?-?-?-?-?-?-?-?-?- JV- glucose leve ls are stable, she is now on metformin bid. nst reactive with 10 x 10 accels 10/13/21 -?-?-?-?-?-?-?-?-?-?-?-?- 33w 0d 176 lb 104/70 Negative -?-?-?-?-?-?-?-?-?-?-?-?- 250 g/dL 130 -?-?-?-?-?-?-?-?-?-?-?-?- -NST only reac tive 10/15/21 -?-?-?-?-?-?-?-?-?-?-?-?- 33w 2d 176 lb 6 oz 110/72 Nega tive -?-?-?-?-?-?-?-?-?-?-?-?- Negative 150 -?-?-?-?-?-?-?-?-?-?-?-?- JV- fasting gluc ose levels now in the 90's she is on 1500 m g of metformin now daily with 2 at night and one at breakfast. pt states that if has to have a section wants a tubal and if not wants depo or nexplanon before she leaves the hospital. 10/20/21 -?-?-?-?-?-?-?-?-?-?-?-?- 34w 0d 175 lb 2 oz 112/72 Nega tive -?-?-?-?-?-?-?-?-?-?-?-?- 250 g/dL 150 -?-?-?-?-?-?-?-?-?-?-?-?- -NST only reac tive 10/22/21 -?-?-?-?-?-?-?-?-?-?-?-?- 34w 2d 175 lb 120/80 Negative -?-?-?-?-?-?-?-?-?-?-?-?- Negative 140 -?-?-?-?-?-?-?-?-?-?-?-?- -NST only reac tive. Dr Ramsey increased metformin this week 1000mg bid. 10/27/21 -?-?-?-?-?-?-?-?-?-?-?-?- 35w 0d 176 lb 118/82 Negative -?-?-?-?-?-?-?-?-?-?-?-?- Negative 150 -?-?-?-?-?-?-?-?-?-?-?-?- -NST only reac tive 10/30/21 -?-?-?-?-?-?-?-?-?-?-?-?- 35w 3d 176 lb 110/78 Negative -?-?-?-?-?-?-?-?-?-?-?--?- Negative 140 -?-?-?-?-?-?-?-?-?-?-?-?- SM- no vb lof go od fm n oreuglar ctx BS controlled 11/05/21 -?-?-?-?-?-?-?-?-?-?-?-?- 36w 2d 177 lb 6 oz 120/80 Nega tive -?-?-?-?-?-?-?-?-?-?-?-?- Negative 150 35 0 -?-?-?-?-?-?-?-?-?-?-?-?- JV- nst reactive , GBS collected. labor precautions discussed. wants to still aim for . glucose levels still in target range on Metformin. Plan for 39 week delivery. Has growth scan today 11/10/21 -?-?-?-?-?-?-?-?-?-?-?-?- 37w 0d 179 lb 8 oz 112/78 Nega tive -?-?-?-?-?-?-?-?-?-?-?-?- Negative 150 -?-?-?-?-?-?-?-?-?-?-?-?- MH-NSt only reac tive. Eager to schedule IOL at 39 wk 11/13/21 -?-?-?-?-?-?-?-?-?-?-?-?- 37w 3d 182 lb 8 oz 116/72 Nega tive -?-?-?-?-?-?-?-?-?-?-?-?- Negative 150 -?-?-?-?-?-?-?-?-?-?-?-?- JV- NST not reac tive today after over an hour and cold water. sending to L&D for BPP 11/13/21 -?-?-?-?-?-?-?-?-?-?-?-?- 37w 3d 181 lb 12.8 oz 123/62 -?-?-?-?-?-?-?-?-?-?-?-?- -?-?-?-?-?-?-?-?-?-?-?-?- ROS Constitutional Constitutional: Reports systems reviewed and no addt'l complaints, except as documented Gastrointestinal Gastrointestinal: Denies bloating, constipation, cramping, diarrhea, nausea or vomiting Genitourinary Genitourinary: Reports other Details: Denies vaginal odor, vaginal bleeding, or vaginal discharge ; Denies difficulty urinating or flank pain Physical Exam HEENT normocephalic Resp normal respiratory effort and normal air movement no CVA tenderness Extremity normal to inspection General Extremity: edema bilateral (trace ) NST FHR Rate Baby A Baseline: 140 Variability:: Moderate Accelerations:: 15 x 15 Decelerations:: None NST Reactive:: Yes FHR Category:: Category I Assessment & Plan (1) Gestational diabetes mellitus (GDM) affecting : COMMENT: endocrine following. 32 wk:wkly NST and US 32 and 36 wk on metformin bid 36 wk US(normal growth) (2) HPV test positive: COMMENT: repeat pap pp (3) Supervision of high risk , antepartum: COMMENT: PRR BRADEN: 12/01/21 PC: Aniyah Yoon Spouse: Tele (4) : QUALIFIERS: Weeks of gestation: 37 weeks Qualified Code(s): Z3A.37 - 37 weeks gestation of COMMENT: GBS neg. self pay, anatomy nl, addtnl views nl (5) H/O gestational diabetes in prior , currently : COMMENT: HgA1c ordered at NOB visit at 16 weeks (6) History of section: COMMENT: then x 2 plan pt wants tubal ligation if ends up with another section and if not wants nexplanon or depo before leaving the hospital. (7) Hx successful (vaginal after ), currently : COMMENT: x2 PLAN: non-reactieve nst in office- reactive now o L&D and BPP 01/12. ok to dc to home. Charges/Coding Multi Select Codes Visit Charges Office Visit/Consults: 51591 OV L3 Est Urinary/Genital Urinary/Genital CPT Codes: 22962-06 non-stress test Interp
--- NOTE | 2021-11-13 17:05 | OB.TRI.NOTE ---
HPI - General HPI Narrative DORON DICK, is a 31 F who presents to L&D from office due to non-reactive nst, for extended monitoring and BPP Maternal Data Information BRADEN Calculator Estimated Delivery Date Method Current WG Current Estimate 12/01/21 LMP (Certain) 37w 3d Other Estimates 12/10/21 Ultrasound #1 36w 1d PFSH PFSH Medical History Gestational diabetes Non-reactive NST (non-stress test) Home Medications promethazine 12.5 mg tablet 12.5 mg PO Q6H PRN #90 tab 06/12/21 [Rx Last Taken Unknown] blood-glucose meter #1 ea 08/25/21 [Rx Last Taken Unknown] lancing device with lancets kit #120 ea 08/25/21 [Rx Last Taken Unknown] metformin 500 mg tablet 1,000 mg PO BIDWMEAL tab 10/22/21 [History Last Taken Unknown] Allergy/AdvReac Type Severity Reaction Status Date / Time No Known Allergies Allergy Verified 11/13/21 14:18 Family History Mother Diabetes Father Diabetes Social History household members: family housing: house number of children: 3 current occupational status: employed current occupation: [employer] pets and animals: No Smoking Status: Never smoker second hand exposure: No alcohol intake: never substance use type: does not use caffeine: Yes seatbelt use: always do you feel safe at home: Yes additional social history: - Rhett (Tele) History 4 Elective abortions Hx Para 3 Spontaneous abortions Hx # Term Pregnancies Ectopic pregnancies Hx # Pregnancies Multiple births # of living children 3 Past Pregnancies Del. Date Name GA/Weeks Outcome Route Bth Weight Infant Gen Labor Lgth Anesthesia Del Locatn Provider FOB Unknown 09/10/2005- Flavio 40 live - full term 3kg Male general [facility] Unknown 12/20/2010- Noreen 40 live - full term 3kg Female 8 hours none [facility] Unknown 12/16/2018- Aniyah 39 live - full term 4kgs Female 10 hours none [facility] Delivery Date: Baby did not descend and was very high per patient Carline Guerra Delivery Date: No notes to display Delivery Date: IoL GDM Carline Guerra Visit Details Expected Delivery Route/Plan patient counseled regarding risks/benefits of trial of labor versus repeat . ACOG/uptodate education given to patient. [] % likelihood of success per calculator TOLAC consent form signed: [] Labor Preferences- CB/BF classes: [] labor support person: Lisa labor intervention preferences: [] pain management options preferred: epidural cut cord/dad catch: [] : yes PP control planned: nexplanon 6 wk pp discussed possible routes of delivery and associated risks: [] special requests: [] Plans Covid status: non immune counseled regarding risk of covid in vs vaccination and declined vaccination Flu vaccine: decline Tdap vaccine: [] Rhogam: [] LARC form signed: [] Problem list reviewed and updated with the most current plan of care details and appropriate orders placed. Relevant counseling for the gestational age provided. Continue routine care and follow up unless otherwise noted in visit notes/problem list details OB Flowsheet Initial Weight: Not Recorded Date <del>?</del> EGA Weight BP Urine Prot <del>?</del> Glucose FHR FuHt Pres Dilation <del>?</del> Effaced St Visit Note 06/19/21 <del>?</del> 16w 3d 174 lb 112/80 <del>?</del> 140 <del>?</del> SM- CRL cons with LMP. SM- CRL and BPD 15w1d cons with LMP. SM- CRL and BPD 15w1d cons with LMP. not the best images. 07/18/21 <del>?</del> 20w 4d 173 lb 2 oz 122/80 Negative <del>?</del> Negative 137 <del>?</del> JV- no complaints today. needs glucola. certified court interpreter helped explain details. Ultrasound with [facility] ordered for 08/04 at 1:00. 08/22/21 <del>?</del> 25w 4d 177 lb 8 oz 117/77 Negative <del>?</del> 500 g/dL 160 <del>?</del> JV- no lof, vaginal bleeding, or dec fm. certified court interpreter service used. pt needs glucola today 09/18/21 <del>?</del> 29w 3d 176 lb 2 oz 118/70 Negative <del>?</del> Negative 143 28 <del>?</del> -NO Vb, LOF. Good FM. [employer] Specialist used. Glucose readings >50% high,will discuss with SM referral Dr Ramsey. 10/02/21 <del>?</del> 31w 3d 176 lb 2 oz 108/66 Negative <del>?</del> Negative 146 32 <del>?</del> -[employer] Specialist used. Lisa with her. No Vb, LOF. Good FM. Started metformin 09/28. Glucose readings still elevated. Is to discuss with Dr Ramsey tomorrow. Start NSTs twice a week next week. 10/06/21 <del>?</del> 32w 0d 173 lb 8 oz <del>?</del> 140 <del>?</del> NST only reactive 10/08/21 <del>?</del> 32w 2d 175 lb 6 oz 110/70 Negative <del>?</del> Negative 130 <del>?</del> JV- glucose levels are stable, she is now on metformin bid. nst reactive with 10 x 10 accels 10/13/21 <del>?</del> 33w 0d 176 lb 104/70 Negative <del>?</del> 250 g/dL 130 <del>?</del> MH-NST only reactive 10/15/21 <del>?</del> 33w 2d 176 lb 6 oz 110/72 Negative <del>?</del> Negative 150 <del>?</del> JV- fasting glucose levels now in the 's she is on 1500 m g of metformin now daily with 2 at night and one at breakfast. pt states that if has to have a section wants a tubal and if not wants depo or nexplanon before she leaves the hospital. 10/20/21 <del>?</del> 34w 0d 175 lb 2 oz 112/72 Negative <del>?</del> 250 g/dL 150 <del>?</del> MH-NST only reactive 10/22/21 <del>?</del> 34w 2d 175 lb 120/80 Negative <del>?</del> Negative 140 <del>?</del> MH-NST only reactive. Dr Ramsey increased metformin this week 1000mg bid. 10/27/21 <del>?</del> 35w 0d 176 lb 118/82 Negative <del>?</del> Negative 150 <del>?</del> MH-NST only reactive 10/30/21 <del>?</del> 35w 3d 176 lb 110/78 Negative <del>?</del> Negative 140 <del>?</del> SM- no vb lof good fm n oreuglar ctx BS controlled 11/05/21 <del>?</del> 36w 2d 177 lb 6 oz 120/80 Negative <del>?</del> Negative 150 35 0 <del>?</del> JV- nst reactive, GBS collected. labor precautions discussed. wants to still aim for . glucose levels still in target range on Metformin. Plan for 39 week delivery. Has growth scan today 11/10/21 <del>?</del> 37w 0d 179 lb 8 oz 112/78 Negative <del>?</del> Negative 150 <del>?</del> MH-NSt only reactive. Eager to schedule IOL at 39 wk 11/13/21 <del>?</del> 37w 3d 182 lb 8 oz 116/72 Negative <del>?</del> Negative 150 <del>?</del> JV- NST not reactive today after over an hour and cold water. sending to L&D for BPP 11/13/21 <del>?</del> 37w 3d 181 lb 12.8 oz 123/62 <del>?</del> <del>?</del> ROS Constitutional Constitutional: Reports systems reviewed and no addt'l complaints, except as documented Gastrointestinal Gastrointestinal: Denies bloating, constipation, cramping, diarrhea, nausea or vomiting Genitourinary Genitourinary: Reports other Details: Denies vaginal odor, vaginal bleeding, or vaginal discharge ; Denies difficulty urinating or flank pain Physical Exam HEENT normocephalic Resp normal respiratory effort and normal air movement no CVA tenderness Extremity normal to inspection General Extremity: edema bilateral (trace ) NST FHR Rate Baby A Baseline: 140 Variability:: Moderate Accelerations:: 15 x 15 Decelerations:: None NST Reactive:: Yes FHR Category:: Category I Assessment & Plan (1) Gestational diabetes mellitus (GDM) affecting : COMMENT: endocrine following. 32 wk:wkly NST and US 32 and 36 wk on metformin bid 36 wk US(normal growth) (2) HPV test positive: COMMENT: repeat pap pp (3) Supervision of high risk , antepartum: COMMENT: PRR BRADEN: 12/01/21 PC: Aniyah Yoon Spouse: Tele (4) : QUALIFIERS: Weeks of gestation: 37 weeks Qualified Code(s): Z3A.37 - 37 weeks gestation of COMMENT: GBS neg. self pay, anatomy nl, addtnl views nl (5) H/O gestational diabetes in prior , currently : COMMENT: HgA1c ordered at NOB visit at 16 weeks (6) History of section: COMMENT: then x 2 plan pt wants tubal ligation if ends up with another section and if not wants nexplanon or depo before leaving the hospital. (7) Hx successful (vaginal after ), currently : COMMENT: x2 PLAN: non-reactieve nst in office- reactive now o L&D and BPP 01/12. ok to dc to home. Charges/Coding Multi Select Codes Visit Charges Office Visit/Consults: 13997 OV L3 Est Urinary/Genital Urinary/Genital CPT Codes: 26007-73 non-stress test Interp
== END 2021-11-13 17:15 | disposition home or self-care (01) ==
LOC: WPOUT 15:49 → WP 15:50
PROVIDERS: Visit Provider Obstetrics & Gynecology
DX: O24.415 Gestational diabetes mellitus in pregnancy, controlled by oral hypoglycemic drugs (principal); O34.219 Maternal care for unspecified type scar from previous cesarean delivery; Z3A.37 37 weeks gestation of pregnancy; Z79.84 Long term (current) use of oral hypoglycemic drugs; Z79.899 Other long term (current) drug therapy
CPT/HCPCS: 59025; 59050; 76819; 99218; G0378

== ENCOUNTER 2021-11-24 06:50 | Inpatient (IN) | payer SELFPAY ==
[2021-11-24] VITALS (27 sets, daily range): BP systolic 94–143; BP diastolic 58–90; PULSE 69–109; RESP 16; TEMP 36.6–37.3; O2SAT 98–100; BMI 34.7
[2021-11-24 07:41] LABS: Bedside Glucose 106 mg/dL (74-106)
[2021-11-24 08:02] LABS: Absolute Lymphocyte Count 2.02 X10^3/uL (0.83-4.51); Absolute Neutrophil Count 6.2 X10^3/uL (2.0-7.7); Basophil# 0.03 X10^3/uL; Basophil% 0.3 % (0-1); Eosinophil# 0.29 X10^3/uL; Eosinophils% 3.1 % (0-5); Hematocrit 39.5 % (37-47); Hemoglobin 13.1 g/dL (12.0-15.0); Lymphocyte # 2.02 X10^3/ul (0.83-4.51); Lymphocyte % 21.7 % (19-41); Mean Corp Hgb Conc 33.2 g/dL (32-36); Mean Corpuscular Hgb 29.2 pg (27.0-32.0); Mean Platelet Vol. 11.9 fl (6.2-12.0); Monocyte# 0.76 X10^3/uL; Monocyte% 8.2 % (0-10); NRBC Flagged by Analyzer 0 % (0-5); Neutrophil # 6.15 X10^3/uL (2.7-7.7); Neutrophil % 66.2 % (47-70); Platelet Count 193 K/mm3 (150-450); RBC Distribution Width CV 13.2 % (11.6-14.6); RBC Distribution Width SD 42.1 fl (35.1-43.9); Red Blood Count 4.49 M/mm3 (4.2-5.4); White Blood Count 9.3 K/mm3 (4.4-11.0)
[2021-11-24] MEDS: Lactated Ringers 1,000 ML 50 ML IV ×2 (08:05→14:29)
[2021-11-24] MEDS: 0.9% Normal Saline Single 100 ML IV.SOLN. INTRA-UTER (08:23)
--- NOTE | 2021-11-24 08:24 | HP.PCM.OB_ITS ---
HPI - General General Date of Admission: 11/24/21 HPI Narrative DORON DICK, is a 31 F who presents for IOL secondary to gestational diabetes, no vb lof good fm no regular ctx Maternal Data Information BRADEN Calculator Estimated Delivery Date Method Current WG Current Estimate 12/01/21 LMP (Certain) 39w 0d Other Estimates 12/10/21 Ultrasound #1 37w 5d PFSH PFSH Medical History Gestational diabetes Non-reactive NST (non-stress test) Home Medications promethazine 12.5 mg tablet 12.5 mg PO Q6H PRN nausea and vomiting #90 tabs 06/12/21 [Rx Last Taken Unknown] blood-glucose meter (Blood Glucose Monitoring) #1 ea 08/25/21 [Rx Last Taken Unknown] lancing device with lancets kit #120 ea 08/25/21 [Rx Last Taken Unknown] metformin 500 mg tablet 1,000 mg PO BIDWMEAL 10/22/21 [History Last Taken Unknow n] Allergy/AdvReac Type Severity Reaction Status Date / Time No Known Allergies Allergy Verified 11/20/21 14:26 Family History Mother Diabetes Father Diabetes Social History household members: family housing: house number of children: 3 current occupational status: employed current occupation: [employer] pets and animals: No Smoking Status: Never smoker second hand exposure: No alcohol intake: never substance use type: does not use caffeine: Yes seatbelt use: always do you feel safe at home: Yes additional social history: - Rhett (Tele) History 4 Elective abortions Hx Para 3 Spontaneous abortions Hx # Term Pregnancies Ectopic pregnancies Hx # Pregnancies Multiple births # of living children 3 Past Pregnancies Del. Date Name GA/Weeks Outcome Route Bth Weight Infant Gen Labor Lgth Anesthesia Del Locatn Provider FOB Unknown 09/10/2005- Flavio 40 live - full term 3kg Male [facility] Unknown 12/20/2010- Noreen 40 live - full term 3kg Female 8 hours none [facility] Unknown 12/16/2018- Aniyah 39 live - full term 4kgs Female 10 hours none [facility] Delivery Date: Last Updated by: Carline Guerra Baby did not descend and was very high per patient Delivery Date: Last Updated by: Carline Turnerillen IoL GDM Visit Details Expected Delivery Route/Plan patient counseled regarding risks/benefits of trial of labor versus repeat . ACOG/uptodate education given to patient. [] % likelihood of success per calculator TOLAC consent form signed: [] Labor Preferences- CB/BF classes: [] labor support person: Lisa labor intervention preferences: [] pain management options preferred: epidural cut cord/dad catch: [] : yes PP control planned: nexplanon 6 wk pp discussed possible routes of delivery and associated risks: [] special requests: [] Plans Covid status: non immune counseled regarding risk of covid in vs vaccination and declined vaccination Flu vaccine: decline Tdap vaccine: [] Rhogam: [] LARC form signed: [] Problem list reviewed and updated with the most current plan of care details and appropriate orders placed. Relevant counseling for the gestational age provided. Continue routine care and follow up unless otherwise noted in visit notes/problem list details OB Flowsheet Initial Weight: Not Recorded Date -?-?-?-?-?-?-?-?-?-?-?-?- EGA Weight BP Urine Prot -?-?-?-?-?-?-?-?-?-?-?-?- Glucose FHR FuHt Pres Dilation -?-?-?-?-?-?-?-?-?-?-?-?- Effaced St Visit Note 06/19/21 -?-?-?-?-?-?-?-?-?-?-?-?- 16w 3d 174 lb 112/80 -?-?-?-?-?-?-?-?-?-?-?-?- 140 -?-?-?-?-?-?-?-?-?-?-?-?- SM- CRL cons wit h LMP. SM- CRL and BPD 15w1d cons w ith LMP. SM- CRL and BPD 15w1d cons w ith LMP. not the best images. 07/18/21 -?-?-?-?-?-?-?-?-?-?-?-?- 20w 4d 173 lb 2 oz 122/80 Nega tive -?-?-?-?-?-?-?-?-?-?-?-?- Negative 137 -?-?-?-?-?-?-?-?-?-?-?-?- JV- no complaint s today. needs glucola. doping supervisor helped explain details. Ultrasound with [facility] ordered for 08/04 at 1:00. 08/22/21 -?-?-?-?-?-?-?-?-?-?-?-?- 25w 4d 177 lb 8 oz 117/77 Nega tive -?-?-?-?-?-?-?-?-?-?-?-?- 500 g/dL 160 -?-?-?-?-?-?-?-?-?-?-?-?- JV- no lof, vagi nal bleeding, or dec fm. doping supervisor service used. pt needs glucola today 09/18/21 -?-?-?-?-?-?-?-?-?-?-?-?- 29w 3d 176 lb 2 oz 118/70 Nega tive -?-?-?-?-?-?-?-?-?-?-?-?- Negative 143 28 -?-?-?-?-?-?-?-?-?-?-?-?- MH-NO Vb, LOF. G ood FM. Inhalation Therapy Aides Teacher used. Glucose readings >50% high,will discuss with SM referral Dr Ramsey. 10/02/21 -?-?-?-?-?-?-?-?-?-?-?-?- 31w 3d 176 lb 2 oz 108/66 Nega tive -?-?-?-?-?-?-?-?-?-?-?-?- Negative 146 32 -?-?-?-?-?-?-?-?-?-?-?-?- MH-Inhalation Therapy Aides Teacher caitie Gonzalez with her. No Vb, LOF. Good FM. Started metformin 09/28. Glucose readings still elevated. Is to discuss with Dr Ramsey tomorrow. Start NSTs twice a week next week. 10/06/21 -?-?-?-?-?-?-?-?-?-?-?-?- 32w 0d 173 lb 8 oz -?-?-?-?-?-?-?-?-?-?-?-?- 140 -?-?-?-?-?-?-?-?-?-?-?-?- NST only reac tive 10/08/21 -?-?-?-?-?-?-?-?-?-?-?-?- 32w 2d 175 lb 6 oz 110/70 Nega tive -?-?-?-?-?-?-?-?-?-?-?-?- Negative 130 -?-?-?-?-?-?-?-?-?-?-?-?- JV- glucose leve ls are stable, she is now on metformin bid. nst reactive with 10 x 10 accels 10/13/21 -?-?-?-?-?-?-?-?-?-?-?-?- 33w 0d 176 lb 104/70 Negative -?-?-?-?-?-?-?-?-?-?-?-?- 250 g/dL 130 -?-?-?-?-?-?-?-?-?-?-?-?- -NST only reac tive 10/15/21 -?-?-?-?-?-?-?-?-?-?-?-?- 33w 2d 176 lb 6 oz 110/72 Nega tive -?-?-?-?-?-?-?-?-?-?-?-?- Negative 150 -?-?-?--?-?-?-?-?-?-?-?-?- JV- fasting gluc ose levels now in the 90's she is on 1500 m g of metformin now daily with 2 at night and one at breakfast. pt states that if has to have a section wants a tubal and if not wants depo or nexplanon before she leaves the hospital. 10/20/21 -?-?-?-?-?-?-?-?-?-?-?-?- 34w 0d 175 lb 2 oz 112/72 Nega tive -?-?-?-?-?-?-?-?-?-?-?-?- 250 g/dL 150 -?-?-?-?-?-?-?-?-?-?-?-?- -NST only reac tive 10/22/21 -?-?-?-?-?-?-?-?-?-?-?-?- 34w 2d 175 lb 120/80 Negative -?-?-?-?-?-?-?-?-?-?-?-?- Negative 140 -?-?-?-?-?-?-?-?-?-?-?-?- -NST only reac tive. Dr Ramsey increased metformin this week 1000mg bid. 10/27/21 -?-?-?-?-?-?-?-?-?-?-?-?- 35w 0d 176 lb 118/82 Negative -?-?-?-?-?-?-?-?-?-?-?-?- Negative 150 -?-?-?-?-?-?-?-?-?-?-?-?- -NST only reac tive 10/30/21 -?-?-?-?-?-?-?-?-?-?-?-?- 35w 3d 176 lb 110/78 Negative -?-?-?-?-?-?-?-?-?-?-?-?- Negative 140 -?-?-?-?-?-?-?-?-?-?-?-?- SM- no vb lof go od fm n oreuglar ctx BS controlled 11/05/21 -?-?-?-?-?-?-?-?-?-?-?-?- 36w 2d 177 lb 6 oz 120/80 Nega tive -?-?-?-?-?-?-?-?-?-?-?-?- Negative 150 35 0 -?-?-?-?-?-?-?-?-?-?-?-?- JV- nst reactive , GBS collected. labor precautions discussed. wants to still aim for . glucose levels still in target range on Metformin. Plan for 39 week delivery. Has growth scan today 11/10/21 -?-?-?-?-?-?-?-?-?-?-?-?- 37w 0d 179 lb 8 oz 112/78 Nega tive -?-?-?-?-?-?-?-?-?-?-?-?- Negative 150 -?-?-?-?-?-?-?-?-?-?-?-?- MH-NSt only reac tive. Eager to schedule IOL at 39 wk 11/13/21 -?-?-?-?-?-?-?-?-?-?-?-?- 37w 3d 182 lb 8 oz 116/72 Nega tive -?-?-?-?-?-?-?-?-?-?-?-?- Negative 150 -?-?-?-?-?-?-?-?-?-?-?-?- JV- NST not reac tive today after over an hour and cold water. sending to L&D for BPP 11/13/21 -?-?-?-?-?-?-?-?-?-?-?-?- 37w 3d 181 lb 12.8 oz 123/62 -?-?-?-?-?-?-?-?-?-?-?-?- -?-?-?-?-?-?-?-?-?-?-?-?- 11/17/21 -?-?-?-?-?-?-?-?-?-?-?-?- 38w 0d 184 lb 2 oz 110/68 Nega tive -?-?-?-?-?-?-?-?-?-?-?-?- Negative 150 -?-?-?--?-?-?-?-?-?-?-?-?- MH-NST only reac tive 11/20/21 -?-?-?-?-?-?-?-?-?-?-?-?- 38w 3d 185 lb 8 oz 113/71 Nega tive -?-?-?-?-?-?-?-?-?-?-?-?- Negative 145 Cephalic 1.5 -?-?-?-?-?-?-?-?-?-?-?-?- 60 -3 JV- NST re active. pt extensively counseled on risks vs benefits of IOL and TOLAC with doping supervisor. consent form signed. 11/24/21 -?-?-?-?-?-?-?-?-?-?-?-?- 39w 0d 184 lb 2 oz 116/73 -?-?-?-?-?-?-?-?-?-?-?-?- -?-?-?-?-?-?-?-?-?-?-?-?- NST FHR Rate Baby A Baseline: 130 Variability:: Moderate Accelerations:: 15 x 15 Decelerations:: None NST Reactive:: Yes FHR Category:: Category I Uterine Activity:: irregular ROS Constitutional Constitutional: Reports systems reviewed and no addt'l complaints, except as documented Eyes Eyes: Denies change in vision ENT HEENT: Reports systems reviewed and no addt'l complaints, except as documented; Denies headache(s) Cardiovascular Cardiovascular: Reports systems reviewed and no addt'l complaints, except as documented; Denies chest pain or dyspnea Respiratory/Chest Respiratory/Chest: Reports systems reviewed and no addt'l complaints, except as documented Gastrointestinal Gastrointestinal: Reports systems reviewed and no addt'l complaints, except as documented; Denies abdominal pain Genitourinary Genitourinary: Reports systems reviewed and no addt'l complaints, except as documented, contractions Details: present (irregular) and movement Details: present; Denies dysuria or genital lesions Musculoskeletal Musculoskeletal: Reports systems reviewed and no addt'l complaints, except as documented Neurologic Neurologic: Reports systems reviewed and no addt'l complaints, except as documented Endocrine Endocrinology: Reports systems reviewed and no addt'l complaints, except as documented Vital Signs Vital Signs Vital Signs: 11/24/21 07:34 11/24/21 07:34 11/24/21 07:37 Temperature Temperature Source Pulse Rate 70 73 Blood Pressure 116/73 BP Systolic 116 BP Diastolic 73 Pulse Ox 11/24/21 07:37 11/24/21 07:42 11/24/21 07:42 Temperature Temperature Source Pulse Rate 79 Blood Pressure BP Systolic BP Diastolic Pulse Ox 98 98 11/24/21 07:47 11/24/21 07:47 11/24/21 08:07 Temperature 98.2 F Temperature Source Pulse Rate 81 Blood Pressure BP Systolic BP Diastolic Pulse Ox 98 11/24/21 08:10 11/24/21 08:10 Temperature 98.3 F Temperature Source Temporal Pulse Rate Blood Pressure BP Systolic BP Diastolic Pulse Ox Weight Weight: 184 lb 2 oz Body Mass Index (BMI) 34.7 Physical Exam Const alert, oriented x3, no apparent distress and healthy appearing HEENT normocephalic and moist oral mucous membranes Head and Scalp: atraumatic Neck full ROM, no lymphadenopathy, supple and thyroid normal General: trachea midline Lymph Lymphatic: no lymphadenopathy noted Chest inspection of chest normal Resp normal respiratory effort Cardio regular rate GI normal to inspection, nondistended, normoactive bowel sounds, soft to palpation and non-tender Inspection: gravid external exam normal Manual OB Exam: estimated gestational size appropriate, presentation cephalic, dilated, effaced and station Extremity normal to inspection General Extremity: Negative for edema Skin no rashes or lesions noted Neuro no focal motor deficits and deep tendon reflexes 2+ bilaterally Motor Exam: strength 5/5 throughout and clonus absent Psych mental status grossly normal Labs Labs Labs: Blood Type O POSITIVE Antibody Screen NEGATIVE Hct 39.5 % (37-47) Hgb 13.1 g/dL (12.0-15.0) Obstetrics US Syphilis Total Ab Non-reactive Rubella IgG Antibody Reactive (Nonreactive) Hep Bs Antigen Non-Reactive (Nonreactive) Chlamydia DNA ([facility]) Negative (Negative) Neisseria gonorrhoeae DNA ([facility]) Negative (Negative) HIV 1&2 Antibody Non-Reactive (Nonreactive) Glucose 1 Hr 50 gm 185 mg/dL (70-140) H Rhogam given: No Assessment & Plan (1) Gestational diabetes mellitus (GDM) affecting : COMMENT: endocrine following. 32 wk:wkly NST and US 32 and 36 wk on metformin bid 36 wk US(normal growth) (2) HPV test positive: COMMENT: repeat pap pp (3) Supervision of high risk , antepartum: COMMENT: PRR BRADEN: 12/01/21 PC: Aniyah Yoon Spouse: Tele (4) : QUALIFIERS: Weeks of gestation: 38 weeks Qualified Code(s): Z3A.38 - 38 weeks gestation of COMMENT: GBS neg. self pay, anatomy nl, addtnl views nl (5) H/O gestational diabetes in prior , currently : COMMENT: HgA1c ordered at NOB visit at 16 weeks (6) History of section: COMMENT: then x 2 plan pt wants tubal ligation if ends up with another section and if not wants nexplanon or depo before leaving the hospital. (7) Hx successful (vaginal after ), currently : COMMENT: x2 (8) Active labor at term: PLAN: Plan Patient presents IOL, plan management for with pit and fb. Pain management: plans epidural. GBS negative. Management of any complications: gdma- follow BS I have reviewed the PFSH and made any clinically relevant updates.
[2021-11-24] MEDS: LACTATED RINGERS 500 ML 999 ML IV ×3 (08:26→17:09)
[2021-11-24] MEDS: Oxytocin 30 units/NS 500 ml 30 UNITS/500 ML IV.SOLN IV (08:59)
[2021-11-24 09:15] LABS: Bedside Glucose 98 mg/dL (74-106)
[2021-11-24] MEDS: fentaNYL-bupivacaine (epidural) 100 ML BAG EPIDURAL (12:37)
[2021-11-24 13:16] LABS: Bedside Glucose 79 mg/dL (74-106)
[2021-11-24 15:06] LABS: Bedside Glucose 73 mg/dL (74-106)
[2021-11-24 16:01] LABS: Bedside Glucose 85 mg/dL (74-106)
[2021-11-24] MEDS: Amnioinfusion- 0.9% NS 1,000 ML IV.SOLN. 1000 ML INTRA-UTER (16:25)
[2021-11-24] MEDS: Oxytocin 30 units/NS 500 ml 30 UNITS/500 ML IV.SOLN 334 UNITS IV (17:30)
--- NOTE | 2021-11-24 17:30 | EX.PCM.OBRPT ---
Assessment & Plan (1) Hx successful (vaginal after ), currently : COMMENT: x2 (2) History of section: COMMENT: then x 2 plan pt wants tubal ligation if ends up with another section and if not wants nexplanon or depo before leaving the hospital. (3) H/O gestational diabetes in prior , currently : COMMENT: HgA1c ordered at NOB visit at 16 weeks (4) : QUALIFIERS: Weeks of gestation: 38 weeks Qualified Code(s): Z3A.38 - 38 weeks gestation of COMMENT: GBS neg. self pay, anatomy nl, addtnl views nl (5) Supervision of high risk , antepartum: COMMENT: PRR BRADEN: 12/01/21 PC: Aniyah Yoon Spouse: Tele (6) HPV test positive: COMMENT: repeat pap pp (7) Gestational diabetes mellitus (GDM) affecting : COMMENT: endocrine following. 32 wk:wkly NST and US 32 and 36 wk on metformin bid 36 wk US(normal growth) (8) Vaginal after : COMMENT: SM 39 gdma2 iol Maternal Data Information BRADEN Calculator Estimated Delivery Date Method Current WG Current Estimate 12/01/21 LMP (Certain) 39w 0d Other Estimates 12/10/21 Ultrasound #1 37w 5d Vaginal Delivery Operative Information Date of Procedure: 11/24/21 Pre-Operative Diagnosis: iol gdma2 Post-Operative Diagnosis: same Surgery / Procedure Performed: Spontaneous Vaginal Delivery Type of Anesthesia: Epidural Special Medications: none Estimated Blood Loss: 100 Fluids Replaced: crystalloid Findings Description of Procedure: Patient began pushing and delivered the head in the RANDY presentation. The head was delivered atraumatically and a loose nuchal cord ?1 was identified and the delivered through without complication. The anterior and posterior shoulders delivered without complication followed by the rest of the infant and the was placed on the maternal abdomen. Delayed cord clamping was employed for approximately 60 seconds. Cord was clamped and cut and gentle traction was applied to the cord and the placenta delivered spontaneously immediately following it was noted to be intact with three-vessel cord. The perineum and vagina were inspected and noted to have no laceration. EBL was 100 cc. Patient and tolerated delivery well. Presentation: RANDY Amniotic Membrane Rupture Type: Artificial Amniotic Fluid Description: Clear Placental Delivery Description: Spontaneous Placenta Disposition: [facility] Cord Vessel Description: 3 Vessels Cord Entanglement: Around neck x 1, loose Delayed Cord Clamping: Yes Post Vaginal Delivery Medications Given After Delivery: IV Pitocin Episiotomy Description: None Laceration: None Complication Complications: None Procedures Urinary/Genital [id number]: [id number] Vaginal Delivery [facility]
[2021-11-24 18:06] LABS: Bedside Glucose 69 mg/dL (74-106)
[2021-11-24 18:25] LABS: Bedside Glucose 111 mg/dL (74-106)
--- NOTE | 2021-11-24 19:21 | NURSING ---
perineum intact no needles on the field
[2021-11-25] VITALS (11 sets, daily range): BP systolic 107–119; BP diastolic 60–68; PULSE 74–88; RESP 14–18; TEMP 36.6–37.1; O2SAT 93–98
[2021-11-25] MEDS: Acetaminophen 500 MG Tablet 1000 MG PO (00:15)
[2021-11-25 06:11] LABS: Bedside Glucose 101 mg/dL (74-106)
[2021-11-25] MEDS: Etonogestrel 68 MG IMPLANT SC (07:35)
--- NOTE | 2021-11-25 07:38 | PCM.PN.OB ---
Subjective Subjective Patient doing well without complaints. Tolerating PO. Ambulating and voiding without difficulty. Feeding well. Denies chest pain, shortness of breath, calf pain/swelling, fevers, chills, lightheadedness. Objective Data Objective Data Vital Signs: Vital Signs Temp Pulse Resp BP Pulse Ox 98.2 F 88 18 111/63 98 11/25/21 03:12 11/25/21 07:28 11/25/21 03:12 11/25/21 07:27 11/25/21 07:28 Oxygen Delivery Method Room Air Weight: 184 lb 2 oz Body Mass Index (BMI) 34.7 Intake & Output: Intake and Output for Last 24 Hours 11/23/21 11/24/21 11/25/21 23:59 23:59 23:59 Intake Total 2828.70 / 2828.70 Output Total 700 / 700 700 / 700 Balance 2128.70 / 2128.70 -700 / -700 Lab / Micro Data Result Diagrams: 11/24/21 07:20 Labs: Laboratory Results - last 24 hr 11/24/21 07:20: WBC 9.3, RBC 4.49, Hgb 13.1, Hct 39.5, MCV 88.0, MCH 29.2, MCHC 33.2, RDW Std Deviation 42.1, RDW Coeff of Rachell 13.2, Plt Count 193, MPV 11.9, Immature Gran % (Auto) 0.500, Neut % (Auto) 66.2, Lymph % (Auto) 21.7, [place] % (Auto) 8.2, Eos % (Auto) 3.1, Baso % (Auto) 0.3, Absolute Neuts (auto) 6.2, Absolute Lymphs (auto) 2.02, Nucleated RBC % 0 11/24/21 07:20: Blood Type O POSITIVE, Antibody Screen NEGATIVE 11/24/21 07:27: POC Glucose 106 11/24/21 09:03: POC Glucose 98 11/24/21 12:06: POC Glucose 79 11/24/21 13:39: POC Glucose 73 L 11/24/21 15:19: POC Glucose 85 11/24/21 16:34: POC Glucose 69 L 11/24/21 18:11: POC Glucose 111 H 11/25/21 06:03: POC Glucose 101 Micro: Microbiology 11/24/21 07:30 Nasal Secretion SARS-CoV-2 Antigen (Rapid) - Final Physical Exam Const alert and oriented x3 HEENT normocephalic Eyes PERRL Neck full ROM Resp normal respiratory effort GI soft to palpation GI Narrative: FF below U Assessment & Plan (1) Vaginal after : COMMENT: 39 gdma2 iol (2) Gestational diabetes mellitus (GDM) affecting : COMMENT: endocrine following. Stable (3) Contraception management: COMMENT: nexplanon prior to pp discharge PLAN: s/p PPD # 1 1. routine post delivery care 2. breast feeding- support given 3. rh positive 4. rubella immune 5. Glucose stable 6. Plan nexplanon insertion later today 7. home today
--- NOTE | 2021-11-25 08:10 | PCM.OP.BLANK ---
Problems Associated Problem List Diagnoses (1) Contraception management: Operative Report Date of Procedure: 11/25/21 insertion of Nexplanon device procedure note: The left arm was bent and cleansed with chlorhexidine. At approximately 8 cm medial to the lateral epicondyle, 3 cc of 1% lidocaine without epi was injected. Next, the Nexplanon device was inserted and deployed without complications. The patient was instructed to remove the dressing after 24 hours. Advised to use backup contraception for 7 days. without complication Multi Select Codes Urinary/Genital Urinary/Genital CPT Codes: Other Procedure See Report
--- NOTE | 2021-11-25 17:00 | CASEMGMT ---
Social Work Brief Assessment - Labor and Delivery Unit Patient Address: [facility] [address] [place] [address] Phone number: [phone] Date of Referral/Notification: 11.25.2021 Time of Referral: [phone] Referred By: Dr. Teran Date of Intervention: 11.25.2021 Time of Intervention: Approximately 1600 Informant: Medical record and mother of baby (MOB) Cassy Mott; Well Service Derrick Worker iPad use, Bobby ID#[id number] assisted with assessment. Reason for Referral: Resources History: MOB is a 31 year old female who immigrated to the [place] from [place]. Reports has been in the [facility] for about 6 years now. to father of baby (FOB) Rhett Hanna. care started late at 16 weeks, but regular thereafter. MOB is G4, P3 to 4 after delivering baby boy Osmin Hanna. Osmin weighted 7 pounds 2 ounces at . MOB's children includes: Flavio (16) Xochlit (11), (3), and Osmin (11.24.21). The two oldest still reside in [place]. Living situation is reported as safe and adequate with household including MOB, FOB, and two youngest children MOB denies any form of abuse or safety issues in relationship with FOB. MOB and FOB work a [employer]. MOB denies any mental Health history, including denial of any PPD history. MOB denies any substance use issues. labwork on 06.19.21 shows negative tox screen. Highest level of education for MOB is high school, no issues with reading or writing though primary language is [place]. Assessment: Met with MOB in room, introducing self and role in MOB's primary language of [place], then used [employer] services for reintroduction and assistance with completion of assessment. MOB held baby during assessment and handled baby appropriately and gently. MOB reports to have necessary supplies to care for baby including safe sleep space, clothing, diapers, wipes, and is breast feeding baby. MOB reports to drive, so no issues with transportation. Reports support from FOB and a [id number] who live locally. Additional support from MOB's boss Lisa Pretty and who has been at the hospital with MOB during this hospitalization. Educated MOB to [place] Medicaid and WIC for children, as well as educated to depression. MOB agreeable to a [facility] referral and WIC referral contact for eligibility. Provided MOB with information on depression and phone numbers for support in [place], as well as list of [facility] resources in [place]. No other voiced needs or concerns by MOB and no voiced concerns by nursing staff. Plan: MOB and infant discharge to home with resources provided. [facility]IC referral to be made. No further needs requested or indicated. -MAGDALENE Alvares, PLATE SHEAR OPERATOR
--- NOTE | 2021-11-27 10:05 | CASEMGMT ---
Social Work Labor and Delivery [facility] referral completed and submitted via the [facility]'s secure web based referral system. Referral to [facility] also marked on referral. No other services requested or indicated. -MAGDALENE Alvares MSW
== END 2021-11-25 18:55 | disposition home or self-care (01) | DRG 807 ==
PROVIDERS: Admitting Provider Obstetrics & Gynecology; Referring Provider Obstetrics & Gynecology; Visit Provider Obstetrics & Gynecology
DX: O24.425 Gestational diabetes mellitus in childbirth, controlled by oral hypoglycemic drugs (principal); Z37.0 Single live birth; O34.219 Maternal care for unspecified type scar from previous cesarean delivery; O69.81X0 Labor and delivery complicated by cord around neck, without compression, not applicable or unspecified; Z3A.39 39 weeks gestation of pregnancy; Z28.310 Unvaccinated for COVID-19; Z28.21 Immunization not carried out because of patient refusal; Z30.017 Encounter for initial prescription of implantable subdermal contraceptive; Z87.59 Personal history of other complications of pregnancy, childbirth and the puerperium
CPT/HCPCS: 59025; 59050; 82962; 85025; 86850; 86900; 86901; 87426; 99218; J7030; J7120; G0378; J2405